=== PATIENT | male | born 2005 ===

== ENCOUNTER → 2024-07-13 | Outpatient (CLI) | payer MEDICAID | END | disposition home or self-care (01) | LOC: Rad HDHVI 14:05 | PROVIDERS: ATTEND Internal Medicine Cardiovascular Disease | DX: R00.0 Tachycardia, unspecified (principal) | CPT/HCPCS: 93306 ==

== ENCOUNTER → 2024-07-18 | Outpatient (CLI) | payer MEDICAID ==
[~2024-07-18] VITALS: Ht 182.9 cm; Wt 170.1 kg
--- NOTE | 2024-07-22 14:18 | DVHSR ---
APPROVED REPORT Exam: Nuclear Stress Test Indication: Chest pain, Abnormal EKG Ht: 6 ft 0 in Wt: 375 lbs BSA: 2.78 m2 HR: 91 bpm BP: 124/72 mmHg BMI: 50.85 Rhythm: NSR Medical History Medical History: HTN, Hypercholesterolemia, Tachycardia Medications: Risperidone, Sertraline, Bupropion XL, Cetirizine hcl Allergies: No known drug allergies Stress Test Details Stress Test: Exercise stress testing was performed using a Jose protocol. HR Resting HR: 91 bpmMax Heart Rate (APMHR): 200.199249 bpm Max HR Achieved: 176 bpmTarget HR (85% APMHR): 170.133983 bpm % of APMHR: 88.00 Recovery HR: 121 bpm HR response to stress: Accelerated BP Resting BP: 124/72 mmHg Max BP: 202/82 mmHg Recovery BP: 118/48 mmHg BP response to stress: Normal resting BP- exaggerated response ECG Resting ECG: Sinus Rhythm Stress ECG: SVT Recovery ECG: Sinus Tachycardia Clinical Reason for Termination: Fatigue Stress Symptoms: Fatigue Exercise duration: 4 min 30 sec Exercise capacity: 4.6 METs Stress ECG Conclusion CLINICAL RESPONSE NON ISCHEMIC ECG RESPONSE NON ISCHEMIC CARDIOLITE IMAGES NO PERFUSION ABNL LESS THAN 10% LIKELIHOOD FOR STRESS INDUCED ISCHEMIA EF 45% NM EXAM: Myocardial Perfusion REST/STRESS Imaging Protocol: Rest Tc-99m/Stress Tc-99m 1 day Resting Data Rest SPECT myocardial perfusion imaging was performed in supine position 30 minutes following the int ravenous injection of 10.92 mCi of Tc-99m Sestamibi. Time of rest injection: 1338 Time of rest imagin Administration Route: IV Administration Site: Right AC Exercise Stress At peak stress, the patient was injected intravenously with 32.6 mCi of Tc-99m Sestamibi. Time of stress injection: 1439 Time of stress imagin Administration Route: IV Administration Site: Right AC Heart Rate at time of stress injection: 173 bpm. Patient continued to exercise for 1 minute(s). Gated Stress SPECT was performed 15 minutes after stress injection. The images were gated to evaluate regional wall motion and calculate left ventricular ejection fracti on. Comments Cardiolite injection at 3 minutes, 26 seconds into test. Study Data Post stress, the left ventricular ejection was 45%.. Nuclear Conclusion CLINICAL RESPONSE NON ISCHEMIC ECG RESPONSE NON ISCHEMIC CARDIOLITE IMAGES NO PERFUSION ABNL LESS THAN 10% LIKELIHOOD FOR STRESS INDUCED ISCHEMIA EF 45%
== END | disposition home or self-care (01) ==
LOC: Rad HDHVI 13:20
PROVIDERS: ATTEND Internal Medicine Cardiovascular Disease
DX: I99.8 Other disorder of circulatory system (principal); R00.0 Tachycardia, unspecified; E78.00 Pure hypercholesterolemia, unspecified; I10 Essential (primary) hypertension; Z79.899 Other long term (current) drug therapy
CPT/HCPCS: 78452; 93017; 96374; A9500